=== PATIENT | female | born 1980 ===

== ENCOUNTER 2022-02-20 16:01 | Emergency (ER) | payer OTHER, MEDICAID, SELFPAY ==
[2022-02-20] VITALS (9 sets, daily range): BP systolic 125–190; BP diastolic 80–117; PULSE 93–128; RESP 8–32; TEMP 36.6; O2SAT 95–99; BMI 32.8
[2022-02-20 16:57] LABS: COVID19 -Nasal RAPID POSITIVE (Negative)
[2022-02-20] MEDS: ACETAMINOPHEN 325 MG TABLET 650 MG PO (17:08)
--- NOTE | 2022-02-20 21:31 | PC.NURSE ---
Pt states she was upstairs in [address] with her mother when she started to feel real bad and RN wheelchaired her to ED triage. States she has been having dental pain in 3 different areas in her mouth for a about 1-2 weeks. bilateral upper molars and bottom L molar. has not seen a dentist due to being in the middle of a move to [place]. Reports waking up yesterday in a sweat and thinks she had a fever at that time. Upon arrival to ED pt was COVID tested and tested positive. Pt vitals are WNL and afebrile. HR 95 BP 135/80. NAD. Resting in bed.
--- NOTE | 2022-02-20 22:49 | PC.NURSE ---
Trying to converse with pt. Pt somulent yet arousable. denies drugs. was unaware she was covid+. on assessment, pt with 2+ edema to B/L LE. state she has been out of her Lasix x 1 month or more. Denies SOB. Denies CP. On cardiac and SPO2 monitoring. HR 99-104. IV placed and labs and cultures drawn. Awaitind further assessment from provider.
[2022-02-20 22:56] LABS: Add Manual Diff / Slide Review NO; Basophils Absolute Auto 100 /uL (0-100); Basophils Percent Auto 0.7 % (0-2); Eosinophils Absolute Auto 200 /uL (0-450); Eosinophils Percent Auto 2.5 % (2-4); Hematocrit 38.8 % (36-46); Hemoglobin 12.9 g/dL (12.0-16.0); Lymphocytes Absolute Auto 1900 /uL (1100-4500); Lymphocytes Percent Auto 19.9 % (25-40); Mean Corpuscular HGB Conc 33.4 % (30-36); Mean Corpuscular Hemoglobin 28.6 PG (26-34); Mean Corpuscular Volume 85.7 fL (80-100); Monocytes Absolute Auto 600 /uL (0-900); Monocytes Percent Auto 6.1 % (3-14); Neutrophils Absolute Auto 6700 /uL (1500-7000); Neutrophils Percent Auto 70.8 % (50-75); Platelet Count 372 X10^3/uL (150-400); Red Blood Cell Count 4.52 X10^6/uL (4.0-5.2); White Blood Cell Count 9.4 X10^3/uL (4.5-11.0)
[2022-02-20 22:58] LABS: INR 1.1 (0.9-1.3); Prothrombin Time 11.8 SECONDS (10.1-12.7)
[2022-02-20 23:03] LABS: Alanine Aminotransferase 14 IU/L (<35); Albumin 2.9 g/dL (3.5-5.0); Albumin Globulin Ratio 0.8 (1.0-2.8); Alkaline Phosphatase 88 U/L (38-126); Aspartate Aminotransferase 22 IU/L (14-36); BUN Creatinine Ratio 17.6 (6-22); Bilirubin Total 0.4 mg/dL (0.2-1.3); Blood Urea Nitrogen 18 mg/dL (7-17); Calcium 8.5 mg/dL (8.4-10.2); Carbon Dioxide 25 mmol/L (22-32); Chloride 98 mmol/L (98-107); Estimated Glomerular Filt Rate > 60 mL/min (>60); Globulin 3.5 g/dL (1.7-4.1); Glucose 458 mg/dL (70-100); HEMOLYSIS < 15 (0-50); Sodium 129 mmol/L (137-145); Total Protein 6.4 g/dL (6.3-8.2)
[2022-02-20 23:07] LABS: D Dimer 318 ng/mL (<230)
[2022-02-20 23:11] LABS: NT-proBNP (BNP-Adult 18+) 720 pg/mL (<125)
[2022-02-20 23:15] LABS: Creatine Kinase 74 U/L (30-135)
--- NOTE | 2022-02-20 23:37 | DI.CT.S_ITS ---
PROCEDURE: CT ANGIO CHEST PE PROTOCOL INDICATIONS: rigors, SOB TECHNIQUE: After the administration of intravenous contrast, 2 mm thick sections acquired from the pulmonary apices to the posterior costophrenic angles. 3-dimensional maximum intensity projection (MIP) coronal and sagittal reformats were then acquired through the thorax. For radiation dose reduction, the following was used: automated exposure control, adjustment of mA and/or kV according to patient size. COMPARISON: None. FINDINGS: Image quality: There is mild motion artifact slightly limiting evaluation. Pulmonary arteries: Pulmonary arteries demonstrate no intraluminal filling defects to suggest central pulmonary embolism. Lower Neck: No lymphadenopathy by size criteria. Thyroid: Visualized thyroid demonstrates no discrete nodules. Axillae: No lymphadenopathy by size criteria. Chest Wall: Unremarkable. Bones: Visualized osseous structures demonstrate no suspicious lesions. Lungs and Airways: No acute consolidation. There are posterior ground-glass opacities in the lungs compatible with dependent atelectasis. No suspicious pulmonary nodules. The trachea and central airways are patent. Pleura: No pneumothorax or pleural effusions. Heart: Heart size is normal. No pericardial effusion. Thoracic Vessels: The thoracic aorta is normal in size. Mediastinum and [place]: No lymphadenopathy by size criteria. Esophagus: No wall thickening. No hiatal hernia. Abdomen: Visualized upper abdominal solid organs appear normal in the early arterial phase of enhancement. IMPRESSION: 1. No evidence of pulmonary embolism. 2. Dependent atelectasis in the lungs without definite evidence of pneumonia. Dictated by: Braden Barton M.D. on 02/21/2022 at 0:24 Approved by: Braden Barton M.D. on 02/21/2022 at 0:27
[2022-02-20 23:59] LABS: Lactate (Lactic Acid) 1.2 mmol/L (0.7-2.1)
[2022-02-21] VITALS (15 sets, daily range): BP systolic 138–177; BP diastolic 71–109; PULSE 87–113; RESP 11–27; TEMP 37.3; O2SAT 94–100
[2022-02-21] MEDS: SODIUM CHLORIDE 0.9% 1,000 ML 1000 ML IV ×2 (00:12→03:42)
--- NOTE | 2022-02-21 00:47 | ED.URI ---
HPI - URI/Sore Throat General Chief Complaint: Upper Respiratory Symptoms Stated Complaint: vomiting/chills Time Seen by Provider: 02/20/22 19:20 Mode of arrival: Wheelchair History of Present Illness HPI Narrative: 41-year-old female nonsmoker with history of diabetes presents with a chief complaint of dental pain and foul taste. She is 3 areas that have been giving her trouble but states they had been draining and no longer are. She denies any facial swelling, difficulty swallowing. She started developing subjective fever and chills this afternoon and feels generally unwell. She denies any chest pain or cough but has had some shortness of breath. She had an episode of vomiting prior to her arrival but denies any abdominal pain or diarrhea, in fact she complains she is been constipated. She denies any dysuria, frequency or urgency Related Data Previous Rx's Medication Instructions Recorded sulfamethoxazole 800 1 tab PO BID 10 days #20 tabs 02/21/22 mg-trimethoprim 160 mg tablet (Bactrim DS) Allergies Allergy/AdvReac Type Severity Reaction Status Date / Time ibuprofen Allergy Hives Verified 02/20/22 16:19 Review of Systems Review of Systems Narrative: GENERAL: See HPI HEENT: Denies sinus pain, ear pain, sore throat, difficulty swallowing, dizziness. RESPIRATORY: See HPI CARDIOVASCULAR: Denies chest pain, palpitations, orthopnea, edema, GASTROINTESTINAL: Denies nausea, vomiting, abdominal pain, diarrhea, constipation, melena. : Denies dysuria, frequency, incontinence, hematuria, urinary retention. MUSCULOSKELETAL: denies weakness, joint pain, or bony pain SKIN: Denies rash, skin lesions, or other NEUROLOGIC: Denies weakness, headache, numbness, change in speech, confusion, seizures, incoordination. PSYCHIATRIC: No concerning psychosocial issues. 12 point review of systems is negative except for those stated above Patient History Social History Smoking Status: Never smoker Smoking Status: Never smoker Substance Use Type: does not use Exam Narrative Exam Narrative: GENERAL: [41] year old patient appears stated age. Well-developed patient, in mild distress. HEAD: Atraumatic. Normocephalic. EYES: Pupils equal round and reactive. Extraocular motions intact. No scleral icterus. No injection or drainage. ENT: Widespread poor dentition, however no facial or gingival swelling Nose without bleeding, purulent drainage. Throat without erythema, tonsillar hypertrophy or exudate. Airway patent. NECK: Trachea midline. Non tender CARDIOVASCULAR: Tachycardic but regular rhythm without murmurs, gallops, or rubs. RESPIRATORY: Clear to auscultation. Breath sounds equal bilaterally. No wheezes, rales, or rhonchi. GASTROINTESTINAL: Abdomen soft, non-tender, nondistended. EXTREMITIES: No edema or joint tenderness. BACK: Nontender without deformity or crepitance. No flank tenderness. NEURO: AOx3. SKIN: No rash or erythema of visible areas Initial Vital Signs Initial Vital Signs: Vital Signs Temperature 97.9 F 02/20/22 16:13 Pulse Rate 128 H 02/20/22 16:13 Respiratory Rate 20 02/20/22 16:13 Blood Pressure 190/117 H 02/20/22 16:13 Pulse Oximetry 97 02/20/22 16:13 Oxygen Delivery Method 02/20/22 16:13 Course Orders Ordered: ED Orders 02/20/22 22:28 Complete Blood Count AUTO DIFF Stat Comprehensive Metabolic Panel Stat D Dimer Stat Lactate (Lactic Acid) Stat NT-proBNP (BNP-Adult 18+) Stat Prothrombin Time INR Stat Troponin & CK Cardiac Panel Stat 02/20/22 23:10 Blood Culture Stat 02/20/22 23:37 CT angio chest PE protocol Stat 02/21/22 00:47 Test Urine Stat Urinalysis and Microscopic Stat Urine Culture Stat Discontinued Medications Acetaminophen (Acetaminophen 325 Mg Tablet) 650 mg PO NOW ONE Stop: 02/20/22 16:59 Last Admin: 02/20/22 17:08 Dose: 650 mg Documented By: KANDIS Acetaminophen (Acetaminophen 325 Mg Tablet) 650 mg PO NOW ONE Stop: 02/21/22 02:28 Last Admin: 02/21/22 02:30 Dose: 650 mg Documented By: SARA Sodium Chloride (Normal Saline 0.9%) 1,000 mls @ 1,000 mls/hr IV BOLUS ONE Stop: 02/21/22 00:36 Last Infusion: 02/21/22 01:10 Dose: 0 mls/hr Documented By: Admin: 02/21/22 00:12 Dose: 1,000 mls/hr Documented By: RADHA Sodium Chloride (Normal Saline 0.9%) 1,000 mls @ 1,000 mls/hr IV BOLUS ONE Stop: 02/21/22 03:36 Last Infusion: 02/21/22 06:09 Dose: 0 mls/hr Documented By: Admin: 02/21/22 03:42 Dose: 1,000 mls/hr Documented By: SARA Trimethoprim/Sulfamethoxazole (Trimeth/Sulfa 160/800 Prepack) 1 bottle MISC SEEINSTR ONE Stop: 02/21/22 02:34 Last Admin: 02/21/22 04:21 Dose: Not Given Documented By: SARA Trimethoprim/Sulfamethoxazole (Trimeth/Sulfa 160/800 (Ds) Tablet) 1 tab PO NOW ONE Stop: 02/21/22 04:20 Last Admin: 02/21/22 04:25 Dose: 1 tab Documented By: SARA Reevaluation(s) Reevaluation #1: Patient continues to improve after above-stated therapies. Heart rate down into the upper 90s and low 100s. Blood glucose into the 300s. She has no ride home and lives out of town. Calves are no longer running and she will need to wait with us until the morning Vital Signs Vital signs: Vital Signs - 8 hr 02/20/22 23:00 02/20/22 23:00 02/20/22 23:30 Temperature Pulse Rate 96 H 97 H Respiratory Rate 16 13 Blood Pressure 145/84 H Pulse Oximetry 98 98 02/20/22 23:31 02/20/22 23:31 02/21/22 00:00 Temperature 98 F Pulse Rate 98 H 97 H Respiratory Rate 8 L 23 Blood Pressure 171/92 H Pulse Oximetry 98 98 02/21/22 00:10 02/21/22 00:10 02/21/22 00:30 Temperature Pulse Rate 102 H Respiratory Rate 11 L Blood Pressure 177/100 H 172/103 H Pulse Oximetry 99 02/21/22 00:30 02/21/22 01:00 02/21/22 01:00 Temperature Pulse Rate 108 H 113 H Respiratory Rate 17 27 H Blood Pressure 160/109 H Pulse Oximetry 97 99 02/21/22 02:09 02/21/22 01:30 02/21/22 01:30 Temperature 99.1 F Pulse Rate 107 H Respiratory Rate 13 Blood Pressure 162/85 H Pulse Oximetry 97 02/21/22 02:00 02/21/22 02:00 02/21/22 02:30 Temperature Pulse Rate 105 H Respiratory Rate Blood Pressure 163/84 H 164/87 H Pulse Oximetry 97 02/21/22 02:30 02/21/22 03:00 02/21/22 03:00 Temperature Pulse Rate 104 H 104 H Respiratory Rate 21 21 Blood Pressure 138/74 Pulse Oximetry 95 96 02/21/22 03:30 02/21/22 03:30 02/21/22 04:00 Temperature Pulse Rate 105 H Respiratory Rate 24 Blood Pressure 148/80 H 143/71 H Pulse Oximetry 94 02/21/22 04:00 02/21/22 04:30 02/21/22 04:30 Temperature Pulse Rate 101 H 96 H Respiratory Rate 15 19 Blood Pressure 155/87 H Pulse Oximetry 95 96 02/21/22 05:00 02/21/22 05:00 02/21/22 05:30 Temperature Pulse Rate 90 Respiratory Rate 18 Blood Pressure 146/77 H 146/80 H Pulse Oximetry 98 02/21/22 05:30 02/21/22 06:00 02/21/22 06:00 Temperature Pulse Rate 87 88 Respiratory Rate 18 27 H Blood Pressure 161/95 H Pulse Oximetry 99 100 MDM - URI/Sore Throat Lab Data Result diagrams: 02/20/22 22:28 02/20/22 22:28 Labs: Lab Results 02/20/22 02/20/22 02/20/22 Range/Units 16:19 22:28 22:28 WBC 9.4 (4.5-11.0) X10^3/uL RBC 4.52 (4.0-5.2) X10^6/uL Hgb 12.9 (12.0-16.0) g/dL Hct 38.8 (36-46) % MCV 85.7 (80-100) fL MCH 28.6 (26-34) PG MCHC 33.4 (30-36) % RDW 13.0 (11.6-14.8) % Plt Count 372 (150-400) X10^3/uL Neut % (Auto) 70.8 (50-75) % Lymph % (Auto) 19.9 L (25-40) % [place] % (Auto) 6.1 (3-14) % Eos % (Auto) 2.5 (2-4) % Baso % (Auto) 0.7 (0-2) % Neut # (Auto) 6700 (8554-4287) /uL Lymph # (Auto) 1900 (2301-7098) /uL [place] # (Auto) 600 (0-900) /uL Eos # (Auto) 200 (0-450) /uL Baso # (Auto) 100 (0-100) /uL PT 11.8 (10.1-12.7) SECONDS INR 1.1 (0.9-1.3) D-Dimer (<230) ng/mL Sodium (137-145) mmol/L Potassium (3.4-5.1) mmol/L Chloride (98-107) mmol/L Carbon Dioxide (22-32) mmol/L BUN (7-17) mg/dL Creatinine (0.52-1.04) mg/dL Estimated GFR (>60) mL/min BUN/Creatinine Ratio (6-22) Glucose (70-100) mg/dL Lactate (0.7-2.1) mmol/L Calcium (8.4-10.2) mg/dL Total Bilirubin (0.2-1.3) mg/dL AST (14-36) IU/L ALT (<35) IU/L Alkaline Phosphatase (38-126) U/L Total Creatine Kinase (30-135) U/L CK-MB (CK-2) CK-MB (CK-2) Rel Index Troponin I (0.01-0.034) ng/mL NT-Pro-B Natriuret Pep (<125) pg/mL Total Protein (6.3-8.2) g/dL Albumin (3.5-5.0) g/dL Globulin (1.7-4.1) g/dL Albumin/Globulin Ratio (1.0-2.8) Urine Color Urine Appearance Urine pH (4.5-8.0) Ur Specific [place] (1.000-1.035) Urine Protein (Negative) Urine Glucose (UA) (Negative) g/dL Urine Ketones (NEGATIVE) Urine Occult Blood (Negative) Urine Nitrate (Negative) Urine Bilirubin (NEGATIVE) Urine Urobilinogen (0.2) E.U./dL Ur Leukocyte Esterase (NEGATIVE) Urine RBC (0-5/HPF) Urine WBC (0-5/HPF) Ur Squamous Epith Cells (0-5/HPF) Urine Bacteria (None) Urine Yeast (None) Ur Culture Indicated? Urine Test (Negative) SARS-CoV-2 (PCR) Positive H (Negative) 02/20/22 02/20/22 02/20/22 Range/Units 22:28 22:28 22:28 WBC (4.5-11.0) X10^3/uL RBC (4.0-5.2) X10^6/uL Hgb (12.0-16.0) g/dL Hct (36-46) % MCV (80-100) fL MCH (26-34) PG MCHC (30-36) % RDW (11.6-14.8) % Plt Count (150-400) X10^3/uL Neut % (Auto) (50-75) % Lymph % (Auto) (25-40) % [place] % (Auto) (3-14) % Eos % (Auto) (2-4) % Baso % (Auto) (0-2) % Neut # (Auto) (6962-5463) /uL Lymph # (Auto) (1160-6520) /uL [place] # (Auto) (0-900) /uL Eos # (Auto) (0-450) /uL Baso # (Auto) (0-100) /uL PT (10.1-12.7) SECONDS INR (0.9-1.3) D-Dimer 318 H (<230) ng/mL Sodium 129 L (137-145) mmol/L Potassium 4.0 (3.4-5.1) mmol/L Chloride 98 (98-107) mmol/L Carbon Dioxide 25 (22-32) mmol/L BUN 18 H (7-17) mg/dL Creatinine 1.02 (0.52-1.04) mg/dL Estimated GFR > 60 (>60) mL/min BUN/Creatinine Ratio 17.6 (6-22) Glucose 458 H (70-100) mg/dL Lactate (0.7-2.1) mmol/L Calcium 8.5 (8.4-10.2) mg/dL Total Bilirubin 0.4 (0.2-1.3) mg/dL AST 22 (14-36) IU/L ALT 14 (<35) IU/L Alkaline Phosphatase 88 (38-126) U/L Total Creatine Kinase 74 (30-135) U/L CK-MB (CK-2) TNP CK-MB (CK-2) Rel Index TNP Troponin I 0.020 (0.01-0.034) ng/mL NT-Pro-B Natriuret Pep 720 H (<125) pg/mL Total Protein 6.4 (6.3-8.2) g/dL Albumin 2.9 L (3.5-5.0) g/dL Globulin 3.5 (1.7-4.1) g/dL Albumin/Globulin Ratio 0.8 L (1.0-2.8) Urine Color Urine Appearance Urine pH (4.5-8.0) Ur Specific [place] (1.000-1.035) Urine Protein (Negative) Urine Glucose (UA) (Negative) g/dL Urine Ketones (NEGATIVE) Urine Occult Blood (Negative) Urine Nitrate (Negative) Urine Bilirubin (NEGATIVE) Urine Urobilinogen (0.2) E.U./dL Ur Leukocyte Esterase (NEGATIVE) Urine RBC (0-5/HPF) Urine WBC (0-5/HPF) Ur Squamous Epith Cells (0-5/HPF) Urine Bacteria (None) Urine Yeast (None) Ur Culture Indicated? Urine Test (Negative) SARS-CoV-2 (PCR) (Negative) 02/20/22 02/21/22 02/21/22 Range/Units 22:28 00:47 00:47 WBC (4.5-11.0) X10^3/uL RBC (4.0-5.2) X10^6/uL Hgb (12.0-16.0) g/dL Hct (36-46) % MCV (80-100) fL MCH (26-34) PG MCHC (30-36) % RDW (11.6-14.8) % Plt Count (150-400) X10^3/uL Neut % (Auto) (50-75) % Lymph % (Auto) (25-40) % [place] % (Auto) (3-14) % Eos % (Auto) (2-4) % Baso % (Auto) (0-2) % Neut # (Auto) (3081-9144) /uL Lymph # (Auto) (1078-6332) /uL [place] # (Auto) (0-900) /uL Eos # (Auto) (0-450) /uL Baso # (Auto) (0-100) /uL PT (10.1-12.7) SECONDS INR (0.9-1.3) D-Dimer (<230) ng/mL Sodium (137-145) mmol/L Potassium (3.4-5.1) mmol/L Chloride (98-107) mmol/L Carbon Dioxide (22-32) mmol/L BUN (7-17) mg/dL Creatinine (0.52-1.04) mg/dL Estimated GFR (>60) mL/min BUN/Creatinine Ratio (6-22) Glucose (70-100) mg/dL Lactate 1.2 (0.7-2.1) mmol/L Calcium (8.4-10.2) mg/dL Total Bilirubin (0.2-1.3) mg/dL AST (14-36) IU/L ALT (<35) IU/L Alkaline Phosphatase (38-126) U/L Total Creatine Kinase (30-135) U/L CK-MB (CK-2) CK-MB (CK-2) Rel Index Troponin I (0.01-0.034) ng/mL NT-Pro-B Natriuret Pep (<125) pg/mL Total Protein (6.3-8.2) g/dL Albumin (3.5-5.0) g/dL Globulin (1.7-4.1) g/dL Albumin/Globulin Ratio (1.0-2.8) Urine Color Yellow Urine Appearance Clear Urine pH 6.0 (4.5-8.0) Ur Specific [place] 1.010 (1.000-1.035) Urine Protein 3+ H (Negative) Urine Glucose (UA) 3+ H (Negative) g/dL Urine Ketones Negative (NEGATIVE) Urine Occult Blood 2+ H (Negative) Urine Nitrate Negative (Negative) Urine Bilirubin Negative (NEGATIVE) Urine Urobilinogen 0.2 (0.2) E.U./dL Ur Leukocyte Esterase Negative (NEGATIVE) Urine RBC None seen (0-5/HPF) Urine WBC 10-30/hpf H (0-5/HPF) Ur Squamous Epith Cells 0-1 /hpf (0-5/HPF) Urine Bacteria Many (>30) H (None) Urine Yeast 0-1/hpf (None) Ur Culture Indicated? Specimen cultured Urine Test Negative (Negative) SARS-CoV-2 (PCR) (Negative) Point of Care Testing Glucose POC 334 Discharge Plan Departure Patient Disposition: Home Clinical Impression: COVID-19, UTI (urinary tract infection) Instructions: DI for Urinary Tract Infection (UTI), DI for COVID-19 (Suspected or Confirmed ) Activity Restrictions/Additional Instructions: *You have been diagnosed with [ UTI and COVID 19] *What to do: *Please continue to take your regular medications as directed. [ ] New medication prescriptions sent to your pharmacy: [ ] [ x] New medication written as a paper prescription [ ] No new medications given *You have been diagnosed with [ COVID-19] *What to do: ?* per recommendations from the CDC and the [facility] Department of Health ?* stay home except to get medical care. ?Restrict activities outside your home, except for getting medical care. ?Do not go to work, school, or public areas. ?Avoid using public transportation, ride sharing, or taxis. ?* separate yourself from other people in your home. ?* call ahead before visiting your doctor ?* Wear a facemask ?* Cover your coughs and sneezes ?* Clean your hands often ?* Avoid sharing household items ?* Clean all high-touch services every day ?* Monitor your symptoms and seek prompt medical attention if your illness is worsening, particularly with difficulty in breathing. You may discontinue your isolation when: ?1. You have been fever-free for at least 24 hours without the use of fever reducing medication, AND ?2. Your symptoms are getting better, AND ?3. At least 5 days have passed since symptoms first appeared ?4. If you have fever, continue to stay home until fever resolves Individuals with laboratory confirmed COVID-19 who have not had any symptoms may discontinue home isolation when at least 5 days have passed since the date of their first COVID-19 diagnostic test and have had no subsequent illness You should notifiy any friends and family that have been in close contact *If up to date on COVID Vaccines, then they do not need to quarantine unless symptoms develop. Get tested on day 5 (or sooner if symptoms develop). Take precautions and watch for symptoms until day 10 *If NOT up to date on COVID Vaccines, then CDC recommends quarantine for at least 5 full days. Wear a well fitted mask at home if you must be around others. If they ?develop symptoms they should get tested. If they remain asymptomatic they should get tested on day 5. They should take precautions and monitor for symptoms until day 10. Prescriptions: New sulfamethoxazole-trimethoprim [Bactrim DS] 800-160 mg tablet 1 tab PO BID 10 Days Qty: 20 0RF Visit Report Forms: Patient Portal/API
[2022-02-21 01:00] LABS: Pregnancy Test Urine Negative (Negative)
[2022-02-21] MEDS: ONDANSETRON 4 MG/2 ML INJ (01:10)
[2022-02-21 01:46] LABS: Appearance Urine UA CLEAR; Bilirubin Urine UA NEGATIVE (NEGATIVE); Color Urine UA YELLOW; Glucose Urine UA 3+ g/dL (Negative); Ketones Urine UA NEGATIVE (NEGATIVE); Leukocyte Esterase Urine UA NEGATIVE (NEGATIVE); Nitrite Urine UA NEGATIVE (Negative); Occult Blood Urine UA 2+ (Negative); Protein Urine UA 3+ (Negative); Urobilinogen Urine UA 0.2 E.U./dL (0.2)
[2022-02-21 02:12] LABS: Bacteria Urine Many (>30); Culture Indicated Urine Specimen Cultured; RBC Urine None Seen (0-5/HPF); Squamous Epithelial Cell Urine 0-1 /HPF (0-5/HPF); WBC Urine 10-30/HPF (0-5/HPF)
[2022-02-21] MEDS: ACETAMINOPHEN 325 MG TABLET 650 MG PO (02:30)
[2022-02-21] MEDS: TRIMETH/SULFA 160/800 (DS) TABLET 1 TAB PO (04:25)
== END 2022-02-21 06:10 | disposition home or self-care (01) ==
PROVIDERS: Emergency Medicine; Emergency Provider Emergency Medicine
DX: U07.1 COVID-19 (principal); N39.0 Urinary tract infection, site not specified
CPT/HCPCS: 36415; 71275; 80053; 81001; 81025; 82550; 82553; 82962; 83605; 83880; 84484; 85025; 85379; 85610; 87040; 87077; 87086; 87186; 87635; 96360; 96361; 99284; C9803; J2405; Q9967